=== PATIENT | female | born 1935 | race Caucasian/White ===

== ENCOUNTER 2018-03-04 06:13 | Day surgery (SDC) | payer MEDICARE, BC ==
[~2018-03-04] VITALS: Ht 167.6 cm; Wt 59.0 kg
[~2018-03-04 06:13] MED LIST: ALBU8.5H8 INH; DIAZ2TAB PO; ESCI5TAB7 PO; FLUT9.9S NS; LEVO75TA PO; POLY17PO5 PO
[2018-03-04 07:45] VITALS: BP 146/79
[2018-03-04] MEDS ORDERED: LACTATED RINGERS 1,000 ML IV SCH (07:48)
[2018-03-04] MEDS ORDERED: MIDAZOLAM 1 MG/ML, 2ML ONE ×2 (07:51)
[2018-03-04] MEDS ORDERED: FENTANYL PF 100 MCG/2ML ONE ×2 (07:51)
[2018-03-04] MEDS ORDERED: PHENYLEPHRINE 10 MG/ML ONE (08:16)
[2018-03-04] MEDS ORDERED: ONDANSETRON 2MG/ML, 2ML ONE (08:16)
[2018-03-04] MEDS ORDERED: PROPOFOL 10 MG/ML, 20ML ONE (08:16)
[2018-03-04] MEDS ORDERED: ONDANSETRON 2MG/ML, 2ML IV PRN (09:00)
[2018-03-04] MEDS ORDERED: LABETALOL 5MG/ML, 20ML IV PRN (09:00)
[2018-03-04] MEDS ORDERED: ACETAMINOPHEN 325 MG TABLET PO PRN (09:00)
[2018-03-04] MEDS ORDERED: OXYcodone 5 MG/5 ML ORAL.SOL UDC PO PRN (09:00)
[2018-03-04] MEDS ORDERED: MEPERIDINE/PF 25MG/0.5ML IVPush PRN (09:00)
[2018-03-04] MEDS ORDERED: hydrALAzine 20 MG/ML, 1ML IV PRN (09:00)
[2018-03-04] MEDS ORDERED: HYDROmorphone 2 MG/ML, 1ML IVPush PRN (09:00)
[2018-03-04] MEDS ORDERED: FENTANYL PF 100 MCG/2ML IV PRN (09:00)
== END 2018-03-04 10:12 | disposition home or self-care (01) ==
LOC: OUT 06:13
PROVIDERS: ATTEND Surgery
DX: K62.5 Hemorrhage of anus and rectum (principal); K21.9 Gastro-esophageal reflux disease without esophagitis; J44.9 Chronic obstructive pulmonary disease, unspecified; E03.9 Hypothyroidism, unspecified; Z85.038 Personal history of other malignant neoplasm of large intestine; Z98.0 Intestinal bypass and anastomosis status; Z88.1 Allergy status to other antibiotic agents; Z88.0 Allergy status to penicillin; Z88.8 Allergy status to other drugs, medicaments and biological substances; Z88.6 Allergy status to analgesic agent
CPT/HCPCS: 45378; 93005; J2250; J2370; J2405; J2704; J3010; J7120

== ENCOUNTER → 2018-03-25 | Outpatient (CLI) | payer MEDICARE, BC | END | disposition home or self-care (01) | LOC: RAD 07:15 | PROVIDERS: ATTEND Surgery | DX: K59.00 Constipation, unspecified (principal); R63.4 Abnormal weight loss; R25.9 Unspecified abnormal involuntary movements; F41.1 Generalized anxiety disorder; Z85.038 Personal history of other malignant neoplasm of large intestine | CPT/HCPCS: 74270 ==